=== PATIENT | female | born 1980 | race Caucasian/White ===

== ENCOUNTER 2017-06-02 18:16 | Emergency (ER) | payer MEDICAID ==
--- NOTE | 2017-06-02 22:09 | EDM.PDOC ---
ED HPI GENERAL MEDICAL PROBLEM - General Chief Complaint: [employer] Problem Stated Complaint: BLEEDING X 1 MONTH Time Seen by Provider: 06/02/17 21:20 Source of Information: Reports: Patient, Family, RN Notes Reviewed History Limitations: Reports: No Limitations - History of Present Illness INITIAL COMMENTS - FREE TEXT/NARRATIVE: 36-year-old female presents emergency department day complaint of vaginal bleeding, this is not a new problem she has seen [employer] in the past has had a bit of a workup she has a history of chronic anemia underwent pelvic ultrasound which was negative a couple of months ago she was to have a follow-up with OB/ [employer] unfortunately she missed her appointment. Her biggest concern today is she does have a history of lightheadedness and fainting secondary to history of head trauma and being chronically anemic her biggest concern is she would like to have her blood count checked - Related Data Allergies Allergy/AdvReac Type Severity Reaction Status Date / Time No Known Allergies Allergy Verified 06/02/17 20:52 Home Meds: Home Meds valACYclovir HCl [valACYclovir] 1,000 mg PO DAILY 06/02/17 [History] Past Medical History HEENT History: Reports: Other (See Below) Other HEENT History: nose broke in past Gastrointestinal History: Reports: GERD [employer] History: Reports: Dysfunctional Uterine Bleeding, , Other (See Below) Other OB/BYN History: c sect x4 Musculoskeletal History: Reports: Arthritis Neurological History: Reports: Head Trauma Hematologic History: Reports: Anemia - Infectious Disease History Infectious Disease History: Reports: Chicken Pox - Past Surgical History GI Surgical History: Reports: Appendectomy Social & Family History - Family History Family Medical History: Noncontributory - Tobacco Use Smoking Status *Q: Current Every Day Smoker Years of Tobacco use: 20 Packs/Tins Daily: 0.2 - Caffeine Use Caffeine Use: Reports: Coffee - Recreational Drug Use Recreational Drug Use: No ED ROS GENERAL - Review of Systems Review Of Systems: See Below Constitutional: Reports: No Symptoms HEENT: Reports: No Symptoms Respiratory: Reports: No Symptoms Cardiovascular: Reports: Lightheadedness GI/Abdominal: Reports: No Symptoms : Reports: Irregular Menses Musculoskeletal: Reports: No Symptoms Skin: Reports: No Symptoms Neurological: Reports: No Symptoms ED EXAM, RENAL/ - Physical Exam Exam: See Below Exam Limited By: No Limitations General Appearance: Alert, WD/WN, No Apparent Distress Respiratory/Chest: No Respiratory Distress, Lungs Clear, Normal Breath Sounds, No Accessory Muscle Use Cardiovascular: Regular Rate, Rhythm, No Murmur GI/Abdominal: Soft, Non-Tender Course - Vital Signs Last Recorded V/S: Last Vital Signs Temp 98.1 F 06/02/17 20:54 Pulse 84 06/02/17 20:54 Resp 16 06/02/17 20:54 BP 126/75 06/02/17 20:54 Pulse Ox 100 06/02/17 20:54 - Orders/Labs/Meds Labs: Laboratory Tests 06/02/17 06/02/17 06/02/17 Range/Units 22:06 22:30 22:30 WBC 12.3 H (4.5-11.0) K/uL RBC 4.08 (3.30-5.50) M/uL Hgb 11.5 L (12.0-15.0) g/dL Hct 34.7 L (36.0-48.0) % MCV 85 (80-98) fL MCH 28 (27-31) pg MCHC 33 (32-36) % Plt Count 324 (150-400) K/uL Neut % (Auto) 62 (36-66) % Lymph % (Auto) 28 (24-44) % [place] % (Auto) 7 H (2-6) % Eos % (Auto) 3 (2-4) % Baso % (Auto) 0 (0-1) % PT 10.0 (9.5-12.0) sec INR 0.94 (0.80-1.20) Sodium 140 (140-148) mmol/L Potassium 4.0 (3.6-5.2) mmol/L Chloride 104 (100-108) mmol/L Carbon Dioxide 27 (21-32) mmol/L Anion Gap 8.9 (5.0-14.0) mmol/L BUN 14 (7-18) mg/dL Creatinine 0.7 (0.6-1.0) mg/dL Est Cr Clr Drug Dosing 91.91 mL/min Estimated GFR (MDRD) > 60 (>60) Glucose 105 (74-106) mg/dL Calcium 8.7 (8.5-10.1) mg/dL Total Bilirubin 0.2 (0.2-1.0) mg/dL AST 15 (15-37) U/L ALT 21 (12-78) U/L Alkaline Phosphatase 82 (46-116) U/L Total Protein 6.7 (6.4-8.2) g/dL Albumin 3.3 L (3.4-5.0) g/dL Globulin 3.4 (2.3-3.5) g/dL Albumin/Globulin Ratio 1.0 L (1.2-2.2) TSH, Ultra Sensitive 1.937 (0.358-3.740) uIU/mL HCG, Qual 06/02/17 Range/Units 22:56 WBC (4.5-11.0) K/uL RBC (3.30-5.50) M/uL Hgb (12.0-15.0) g/dL Hct (36.0-48.0) % MCV (80-98) fL MCH (27-31) pg MCHC (32-36) % Plt Count (150-400) K/uL Neut % (Auto) (36-66) % Lymph % (Auto) (24-44) % [place] % (Auto) (2-6) % Eos % (Auto) (2-4) % Baso % (Auto) (0-1) % PT (9.5-12.0) sec INR (0.80-1.20) Sodium (140-148) mmol/L Potassium (3.6-5.2) mmol/L Chloride (100-108) mmol/L Carbon Dioxide (21-32) mmol/L Anion Gap (5.0-14.0) mmol/L BUN (7-18) mg/dL Creatinine (0.6-1.0) mg/dL Est Cr Clr Drug Dosing mL/min Estimated GFR (MDRD) (>60) Glucose (74-106) mg/dL Calcium (8.5-10.1) mg/dL Total Bilirubin (0.2-1.0) mg/dL AST (15-37) U/L ALT (12-78) U/L Alkaline Phosphatase (46-116) U/L Total Protein (6.4-8.2) g/dL Albumin (3.4-5.0) g/dL Globulin (2.3-3.5) g/dL Albumin/Globulin Ratio (1.2-2.2) TSH, Ultra Sensitive (0.358-3.740) uIU/mL HCG, Qual Negative Departure - Departure Time of Disposition: 23:32 Disposition: Home, Self-Care 01 Condition: Good Clinical Impression: Menorrhagia Qualifiers: Menorrahagia type: with irregular cycle Qualified Code(s): N92.1 - Excessive and frequent menstruation with irregular cycle - Discharge Information Referrals: Angus Wilcox, CLINICAL PRACTICE CONSULTANT [Primary Care Provider] - Forms: ED Department Discharge Additional Instructions: Please call to the clinic on Monday to try and schedule appointment with Dr. Lugo in [place] for sooner evaluation, call return to the emergency department worsening of symptoms - Assessment/Plan Plan: Assessment Acuity = chronic Site and laterality = menorrhagia Etiology = unclear etiology Manifestations = none Location of injury = Home Lab values = hemoglobin 11.5, CMP, INR within normal limits Plan I did review options with her she was reassured that her hemoglobin is up she is going to call the clinic on Monday for an appointment with her [employer] to discuss other options This note was dictated using [employer] voice recognition software please call with any questions on syntax or vanesa.
== END 2017-06-02 23:45 | disposition home or self-care (01) ==
LOC: JP.ED 18:16
DX: N92.1 Excessive and frequent menstruation with irregular cycle (principal); F17.210 Nicotine dependence, cigarettes, uncomplicated; Z79.899 Other long term (current) drug therapy
CPT/HCPCS: 36415; 80053; 84443; 84703; 85025; 85610; 99284